=== PATIENT | male | born 1950 | race Caucasian/White ===

== ENCOUNTER 2018-01-25 11:53 | Emergency (ER) | payer OTHER ==
[~2018-01-25] VITALS: Ht 172.7 cm; Wt 116.1 kg
[2018-01-25] MEDS ORDERED: MEDROLPACK PO (15:52)
[2018-01-25] MEDS ORDERED: VISTARIL25 MG PO (15:52)
[2018-01-25] MEDS ORDERED: ZYRTEC10 M3 PO (15:52)
[2018-01-25] MEDS ORDERED: DICLOFENAC POTA50 MG PO (15:52)
[2018-01-25] MEDS ORDERED: DOXYCYCLINE HY100 MG PO (15:52)
== END 2018-01-25 16:04 | disposition home or self-care (01) ==
LOC: ER 11:53
DX: L03.116 Cellulitis of left lower limb (principal)

== ENCOUNTER 2021-11-10 13:11 | Emergency (ER) | payer OTHER ==
[~2021-11-10] VITALS: Ht 175.3 cm; Wt 115.7 kg
[~2021-11-10 13:11] MED LIST: DICLOFENAC POTA50 MG PO; DOXYCYCLINE HY100 MG PO; MEDROLPACK PO; VISTARIL25 MG PO; ZYRTEC10 M3 PO
== END 2021-11-10 14:49 | disposition home or self-care (01) ==
LOC: ER 13:11
DX: L03.115 Cellulitis of right lower limb (principal); Z91.041 Radiographic dye allergy status; I10 Essential (primary) hypertension

== ENCOUNTER 2022-04-01 14:57 | Emergency (ER) | payer OTHER ==
[~2022-04-01] VITALS: Ht 172.7 cm; Wt 120.2 kg
[2022-04-01] MEDS ORDERED: SIMVASTATIN5 MG (15:54)
[2022-04-01] MEDS ORDERED: TENORMIN50 M1 (15:54)
== END 2022-04-01 22:44 | disposition home or self-care (01) ==
LOC: ER 14:57
DX: J40 Bronchitis, not specified as acute or chronic (principal); I10 Essential (primary) hypertension; Z91.041 Radiographic dye allergy status; Z20.822 Contact with and (suspected) exposure to COVID-19

== ENCOUNTER 2022-10-06 13:37 | Outpatient (CLI) | payer OTHER ==
[~2022-10-06 13:37] MED LIST changes: +SIMVASTATIN5 MG; +TENORMIN50 M1
== END 2022-10-06 13:44 | disposition home or self-care (01) ==
LOC: RAD 13:37
DX: Z01.818 Encounter for other preprocedural examination (principal)

== ENCOUNTER 2024-06-28 13:28 | Emergency (ER) | payer OTHER ==
[~2024-06-28] VITALS: Ht 170.2 cm; Wt 127.0 kg
[2024-06-28] MEDS ORDERED: LEVALBUTEROL HCL 1.25 MG/3 ML SOLUTION IH STA (15:59)
[2024-06-28] MEDS ORDERED: BUDESONIDE 0.5 MG/2 ML AMPUL.NEB IH STA (16:00)
[2024-06-28 16:57] LABS: COVID-19 AG NEGATIVE (NEGATIVE)
[2024-06-28 17:00] LABS: HEMATOCRIT 42.1 % (40.1-51.0); RED BLOOD COUNT 4.67 M/uL (4.63-6.08)
[2024-06-28 17:01] LABS: BASO % 0.3 % (0.1-1.2); EOS % 2.1 % (0.7-7.0); LYMPH # 1.54 (1.18-3.74); LYMPH % 25.4 % (19.3-53.1); MONO % 6.6 % (4.7-12.5); NEUT # 3.96 (1.56-6.13); NEUT % 65.4 % (34.0-71.1); PLATELET COUNT 141 K/uL (163-369); RED CELL DISTRIBUTION WIDTH 13.3 % (11.6-14.4)
[2024-06-28 17:02] LABS: EOS # 0.13 (0.04-0.54)
[2024-06-28 17:26] LABS: INFLUENZA A AG NEGATIVE (NEGATIVE)
[2024-06-28] MEDS ORDERED: IPRATROPIUM/ALBUTEROL SULFATE 3 ML AMPUL.NEB IH SCH (19:15)
[2024-06-28] MEDS ORDERED: METHYLPREDNISOLONE SOD SUCC 125 MG VIAL IV ONE (19:15)
[2024-06-28] MEDS ORDERED: GUAIFENESIN/DEXTROMETHORPHAN 100MG/10ML BLIST.PACK PO ONE (19:30)
[2024-06-28] MEDS ORDERED: IPRATROPIUM/ALBUTEROL SULFATE 3 ML AMPUL.NEB IH ONE (19:59)
[2024-06-28 20:35] LABS: ABG PH 7.434 (7.35-7.45); ABG PO2 103.4 mmHg (80-100); BICARBONATE 22.6 mmol/l (23-25); SaO2 98.1 %; Tco2 23.7 mmol/l; allen test SATISFACTORY; mode ROOM AIR; o2 21 %; puncture site RADIAL LEFT
[2024-06-28 20:36] LABS: ABG pCO2 34.6 mmHg (35-45)
[2024-06-28] MEDS ORDERED: MEDROLPACK PO (22:58)
[2024-06-28] MEDS ORDERED: ALBUTEROL2.5 MG/3 M IH (22:58)
[2024-06-28] MEDS ORDERED: GILTUSS COUGH-118 M1 PO (22:59)
== END 2024-06-29 00:28 | disposition home or self-care (01) ==
LOC: ER 13:40
PROVIDERS: General Practice
DX: J45.901 Unspecified asthma with (acute) exacerbation (principal); I10 Essential (primary) hypertension; Z20.822 Contact with and (suspected) exposure to COVID-19; Z88.8 Allergy status to other drugs, medicaments and biological substances